=== PATIENT | female | born 1990 | race Caucasian/White ===

== ENCOUNTER → 2023-01-29 | Outpatient (CLI) | payer OTHER ==
[2023-01-29 15:44] LABS: BASO # 0.03 K/mm3 (0.02-0.10); EOS % 1.1 % (1.0-5.0); HEMATOCRIT 42.9 % (37.0-47.0); HEMOGLOBIN 13.7 g/dL (12.5-16.0); LYMPH# 1.19 K/mm3 (1.50-4.00); MEAN CELL VOLUME 83 fl (78-100); MEAN CORPUSCULAR HEMOGLOBIN 27 pg (27-31); MEAN CORPUSCULAR HGB CONC 32 g/dL (33-37); MEAN PLATELET VOLUME 9.9 fl (7.4-10.4); MONO # 0.38 K/mm3 (0.20-0.80); NEU # 7.19 K/mm3 (1.40-6.50); PLATELET COUNT 278 K/mm3 (130-400); RED BLOOD COUNT 5.17 M/mm3 (4.10-5.30); RED CELL DISTRIBUTION WIDTH 13.9 % (11.5-14.5); WHITE BLOOD COUNT 8.9 K/mm3 (4.8-10.8)
[2023-01-29 15:50] LABS: CALCIUM 8.6 mg/dL (8.3-10.5)
[2023-01-29 15:51] LABS: TOTAL PROTEIN 7.5 g/dL (6.4-8.3)
[2023-01-29 15:53] LABS: TOTAL BILIRUBIN 0.7 mg/dL (0.2-1.2)
== END ==
LOC: LAB 15:22
PROVIDERS: Registered Nurse
DX: R10.9 Unspecified abdominal pain (principal)

== ENCOUNTER → 2023-01-30 | Outpatient (CLI) | payer OTHER | LOC: RAD 14:30 | DX: R10.11 Right upper quadrant pain (principal) | CPT/HCPCS: Q9967 ==